=== PATIENT | female | born 1955 | race Hispanic/Latino ===

== ENCOUNTER 2018-12-17 14:51 | Emergency (ER) | payer SELFPAY ==
[~2018-12-17 14:51] MED LIST: ISOVUE-370 76%-LOCM 1 ML ONE
[2018-12-17 16:17] LABS: #Lymphocytes 0.8 thou/uL (1.20-3.40); #Monocytes 0.5 thou/uL (0.11-0.59); #Neutrophils 9.5 thou/uL (1.40-6.50); %Basophils 0.2 % (0.0-1.0); %Eosinophils 0.1 % (0.0-10.0); %Lymphocytes 7.7 % (21.0-51.0); %Monocytes 4.4 % (0.0-10.0); %Neutrophils 87.6 % (42.0-75.0); Hemoglobin 16.6 g/dL (12.0-16.0); Mean Corpuscular HGB CONC 33.9 g/dL (32.0-36.0); Mean Corpuscular Volume 94.4 fL (78.0-98.0); Platelet Count 256 thou/uL (130-400); Red Blood Cell (RBC) Count 5.19 mill/uL (4.20-5.40); White Blood Cell (WBC) Count 10.9 thou/uL (4.8-10.8)
[2018-12-17 16:30] LABS: Bilirubin Small (Negative); Blood, Urine Negative (Negative); Clarity CLOUDY (Clear); Glucose, Urine (Dipstick) Negative (Negative); Leukocyte Small (Negative); Nitrite Negative (Negative); Protein, Urine (Dipstick) Trace mg/dL (Neg-Trace); Specific Gravity, Urine 1.031 (1.002-1.036); Urobilinogen 0.2 mg/dL (0.2-1.0); pH, Urine 5.5 (5.0-9.0)
[2018-12-17 16:34] LABS: Bacteria/HPF Rare-Few HPF (None Seen); Pathc Cast-AUWi Flag 1.16 (0-2.49)
[2018-12-17 16:39] LABS: ALT (SGPT) 36 U/L (8-55); AST (SGOT) 33 U/L (5-34); Albumin 4.8 g/dL (3.4-4.8); Alkaline Phosphatase 71 U/L (40-150); Anion Gap 17 mmol/L (10-20); BUN (Urea Nitrogen) 20 mg/dL (9.8-20.1); Calc. Creatinine Clearance 0 mL/min (70-130); Calcium 9.8 mg/dL (7.8-10.44); Carbon Dioxide 22 mmol/L (23-31); Chloride 103 mmol/L (98-107); Estimated GFR-MDRD 81; Globulin 3.8 g/dL (2.4-3.5); Glucose 119 mg/dL (80-115); Lipase 37 U/L (8-78); Potassium 4.2 mmol/L (3.5-5.1); Protein, Total 8.6 g/dL (6.0-8.3); Sodium 138 mmol/L (136-145)
[2018-12-17 16:48] LABS: Hyaline Casts/LPF 0-3 HYALINE CAST LPF (0-3 Hyaline); RBC/HPF None Seen HPF (0-3); Renal Epithelial None Seen HPF (0-3); Transitional Epithelial NONE SEEN HPF (0-3)
[2018-12-17] MEDS ORDERED: Ondansetron PF 4 MG/2 ML Vial ONE (17:00)
[2018-12-17] MEDS ORDERED: Fentanyl 100 MCG/2 ML VIAL ONE (17:01)
[2018-12-17] MEDS ORDERED: Pantoprazole 80 MG in Sodium Chloride 0.9% 100 ML IVP SCH (18:15)
--- NOTE | 2018-12-17 19:01 | CT ---
CT ABDOMEN WITH CONTRAST CT PELVIS WITH CONTRAST: DATE: 12/17/18 at 5:10 p.m. HISTORY: 63-year-old female with sudden onset of generalized abdominal pain and fever. History of prior coloni c rupture. COMPARISON: None. TECHNIQUE: IV injection of iodinated contrast media: 100 mL Isovue 370. Oral contrast media: not administered. FINDINGS: There are fluid-filled structures in the left renal sinus, following the calyces, which give the appe arance of dilated left renal collecting system. However, it is possible that this represents multiple parapelvic renal cysts rather than hydronephros is. There is no hydroureter. The bilateral nephrograms are homogeneous and symmetrically normal, with no perfusion defects. No hydronephrosis of the right kidney. No abnormality identified involving the right kidney, adrenals, pancreas, liver, spleen, appendix, or urinary bladder. There is a suture randal e at the rectosigmoid junction. No evidence of colonic diverticulitis. No evidence of edema surroundi ng the anastomotic site. No small bowel dilation. No pneumoperitoneum. Multiple small bowel loops are adherent to the ventral aspect of the peritoneal cavity abutting the peritoneal lining, suggestive o f adhesions. There is postsurgical scar in the subcutaneous fat ventral to the anterior abdominal wal l. Lung bases are grossly clear. No pneumoperitoneum or ascites. IMPRESSION: 1. The appearance of left hydronephrosis is probably due to multiple parapelvic renal cysts. Cli nical correlation is recommended (Is there left flank pain?). 2. No other potentially acute findings. 3. Status post distal colonic anastomosis near rectosigmoid junction. 4. post surgical changes involving ventral aspect of peritoneal cavity, without small bowel mech anical obstruction. MADALYN Cruz POS: STEPH
== END 2018-12-17 19:15 | disposition home or self-care (01) ==
LOC: ERS 14:51
DX: R10.13 Epigastric pain (principal); Z87.891 Personal history of nicotine dependence
CPT/HCPCS: 74177; 80053; 81003; 81015; 83690; 84484; 85025; 96361; 96374; 96375; C9113; J2405; J3010; J7050; Q9966

== ENCOUNTER 2019-10-22 15:11 | Outpatient (CLI) | payer OTHER ==
--- NOTE | 2019-11-19 13:54 | MMO ---
Bilateral MAMMO Bilat Screen [facility]. CLINICAL HISTORY: Patient is 64 years old and is seen for screening. The patient has the following family history of breast cancer: maternal aunt and cousin female. The patient has no personal history of cancer. VIEWS: The views performed were: bilateral craniocaudal with tomosynthesis; bilateral mediolateral oblique with tomosynthesis; and right mediolateral oblique. FILMS COMPARED: The present examination has been compared to a prior imaging study performed at [facility] on 07/11/2017. This study has been interpreted with the assistance of computer-aided detection. MAMMOGRAM FINDINGS: The breasts are heterogeneously dense, which could obscure a lesion on mammography. There are benign appearing calcifications seen in both breasts. There are no suspicious masses, suspicious calcifications, or new areas of architectural distortion. IMPRESSION: THERE IS NO MAMMOGRAPHIC EVIDENCE OF MALIGNANCY. A ROUTINE FOLLOW-UP MAMMOGRAM IN 1 YEAR IS RECOMMENDED. THE RESULTS OF THIS EXAM WERE SENT TO THE PATIENT. ACR BI-RADS Category 2 - Benign finding MAMMOGRAPHY NOTE: 1. A negative mammogram report should not delay a biopsy if a dominant of clinically suspicious mass is present. 2. Approximately 10% to 15% of breast cancers are not detected by mammography. 3. Adenosis and dense breasts may obscure an underlying neoplasm. Reported by: ROSMERY FLAHERTY MD Electonically Signed: [id number]
== END 2019-10-22 15:12 | disposition home or self-care (01) ==
LOC: BICMAMMO 15:11
PROVIDERS: ATTEND Family Medicine
DX: Z12.31 Encounter for screening mammogram for malignant neoplasm of breast (principal); Z80.3 Family history of malignant neoplasm of breast
CPT/HCPCS: 77063; 77067

== ENCOUNTER 2021-08-09 13:30 | Outpatient (CLI) | payer MEDICARE | END 2021-08-09 13:31 | disposition home or self-care (01) | LOC: BICMAMMO 13:30 | PROVIDERS: ATTEND Family Medicine | DX: Z12.31 Encounter for screening mammogram for malignant neoplasm of breast (principal); Z13.820 Encounter for screening for osteoporosis; Z78.0 Asymptomatic menopausal state | CPT/HCPCS: 77063; 77067; 77080 ==

== ENCOUNTER 2022-12-12 12:50 | Outpatient (CLI) | payer OTHER | END 2022-12-12 12:51 | disposition home or self-care (01) | LOC: BICMAMMO 12:50 | PROVIDERS: ATTEND Family Medicine | DX: Z12.31 Encounter for screening mammogram for malignant neoplasm of breast (principal); Z80.3 Family history of malignant neoplasm of breast | CPT/HCPCS: 77063; 77067 ==